=== PATIENT | female | born 1980 | race Caucasian/White ===

== ENCOUNTER 2018-09-07 15:35 | Inpatient (IN) | payer MEDICAID ==
[~2018-09-07] VITALS: Ht 160 cm; Wt 130.6 kg
[2018-09-07 15:54] VITALS: Ht 160 cm; Wt 130.6 kg
[2018-09-07 17:09] LABS: BASOPHIL % 0.4 % (0-2); PLATELET COUNT 281 x10^3mcL (130-400)
[2018-09-07 17:11] LABS: RED CELL DISTRIBUTION WIDTH 19.5 % (11.5-14.5)
[2018-09-07 17:14] LABS: CALCIUM 9.7 mg/dL (8.5-10.1); CARBON DIOXIDE 29.2 mmol/L (21-32); CREATININE SERUM 1.1 mg/dL (0.6-1.0); POTASSIUM SERUM 3.9 mmol/L (3.5-5.1)
[2018-09-07 17:27] LABS: ALBUMIN 3.6 g/dL (3.4-5.0); BILIRUBIN TOTAL 0.25 mg/dL (0.20-1.00); FREE T4 0.22 ng/dL (0.76-1.46); TOTAL PROTEIN, SERUM 7.2 g/dL (6.4-8.2)
[2018-09-07 18:10] LABS: microscopic required? YES; urine erythrocyte TRACE (NEGATIVE)
[2018-09-07 18:18] LABS: AMPHETAMINE QUAL UR NONE DETECTED (See below)
[2018-09-07] MEDS ORDERED: BENADRYL ALLERG25 M1 PO (19:23)
[2018-09-07] MEDS ORDERED: LEVOTHYROXIN0.025 M2 PO (19:24)
[2018-09-07 19:53] LABS: MAGNESIUM 1.6 mg/dL (1.8-2.4); PHOSPHOROUS 3.9 mg/dL (2.5-4.9)
[2018-09-07 20:47] VITALS: BP 134/78
[2018-09-07 21:19] LABS: CHOLESTEROL/HDL RATIO 6.3
[2018-09-08 05:18] VITALS: BP 139/90
[2018-09-08 08:00] VITALS: BP 126/81
[2018-09-08 11:11] LABS: BASOPHIL % 0.3 % (0-2); PLATELET COUNT 256 x10^3mcL (130-400)
[2018-09-08 11:12] LABS: RED CELL DISTRIBUTION WIDTH 19.3 % (11.5-14.5)
[2018-09-08 11:58] VITALS: BP 150/89
[2018-09-08 14:39] LABS: CALCIUM 8.9 mg/dL (8.5-10.1); CREATININE SERUM 1.1 mg/dL (0.6-1.0); MAGNESIUM 2.1 mg/dL (1.8-2.4); POTASSIUM SERUM 3.8 mmol/L (3.5-5.1)
[2018-09-08 16:57] VITALS: BP 144/99
[2018-09-08 20:10] VITALS: BP 163/83
[2018-09-08 21:15] VITALS: BP 142/85
[2018-09-09 07:11] LABS: CALCIUM 8.7 mg/dL (8.5-10.1); CARBON DIOXIDE 26.1 mmol/L (21-32); CHLORIDE SERUM 102 mmol/L (98-107); GFR1 > 60 mL/min; GLUCOSE SERUM 102 mg/dL (74-106); MAGNESIUM 1.9 mg/dL (1.8-2.4); PHOSPHOROUS 3.5 mg/dL (2.5-4.9); SODIUM SERUM 139 mmol/L (136-145)
[2018-09-09 07:15] LABS: T3 TOTAL 0.57 ng/mL
[2018-09-09 07:26] LABS: FREE T4 0.33 ng/dL (0.76-1.46)
[2018-09-09 07:32] LABS: FREE THYROXINE INDEX 0.5 ug/dL (1.4-4.5); T4(THYROXINE) 1.8 ug/dL (4.7-13.3)
[2018-09-09 07:51] VITALS: BP 146/93
[2018-09-09 08:33] LABS: BASOPHIL % 0.2 % (0-2); PLATELET COUNT 277 x10^3mcL (130-400)
[2018-09-09 09:30] LABS: RED CELL DISTRIBUTION WIDTH 20.4 % (11.5-14.5)
[2018-09-09 11:42] LABS: ovalocyte/elliptocyte 1+; rbc morphology (normal/abnorm) ABNORMAL (NORMAL)
[2018-09-09 12:06] VITALS: BP 135/95
[2018-09-09 16:04] VITALS: BP 140/74
[2018-09-09 20:41] VITALS: BP 130/77
[2018-09-10 05:01] VITALS: BP 106/67
[2018-09-10 09:18] VITALS: BP 132/85
[2018-09-10 10:57] VITALS: BP 132/85
== END 2018-09-10 11:40 | disposition home or self-care (01) | DRG 47 ==
LOC: ED 15:35 → DU 19:03
PROVIDERS: Emergency Medicine; ADMIT Family Medicine
DX: G45.9 Transient cerebral ischemic attack, unspecified (principal); E11.65 Type 2 diabetes mellitus with hyperglycemia; K76.0 Fatty (change of) liver, not elsewhere classified; Z68.42 Body mass index [BMI] 45.0-49.9, adult; E83.42 Hypomagnesemia; R19.7 Diarrhea, unspecified; E03.9 Hypothyroidism, unspecified; R74.0 Nonspecific elevation of levels of transaminase and lactic acid dehydrogenase [LDH]; E78.5 Hyperlipidemia, unspecified; Z79.84 Long term (current) use of oral hypoglycemic drugs; Z85.42 Personal history of malignant neoplasm of other parts of uterus; Z82.3 Family history of stroke; Z80.0 Family history of malignant neoplasm of digestive organs
CPT/HCPCS: 82962; 84439; 87046; 87046-59; J2405; J3475; J7030; J8597; Q0092; Q9967